=== PATIENT | female | born 2000 | race Caucasian/White ===

== ENCOUNTER 2020-01-03 22:59 | Emergency (ER) | payer OTHER, SELFPAY ==
--- NOTE | ~2020-01-03 | XR_ITS ---
EXAMINATION: XR wrist LT min 3V EXAM DATE: 01/03/2020 23:38 INDICATION: No known recent injury provided at this time. Pain of the left wrist. TECHNIQUE: Left wrist frontal, frontal with ulnar deviation, oblique and lateral projections obtained and reviewed. There is no prior study for comparison. FINDINGS: Left wrist scapholunate joint space is maintained. There are no bony erosions identified. There are no acute fractures or dislocations identified. There is no subcutaneous gas. The soft tissue is unremarkable. There are no radiopaque foreign bodies. IMPRESSION: Unremarkable left wrist exam. Reviewed, dictated and finalized at location .
[2020-01-03 23:05] VITALS: BP 130/83; PULSE 83; RESP 20; TEMP 37.2; O2SAT 99
--- NOTE | 2020-01-03 23:30 | ED.UPPEXIN ---
HPI - Extremity Injury (Upper) General Chief Complaint: Extremity Injury, Upper Stated Complaint: pain in wrist Source: patient Mode of arrival: ambulatory Limitations: no limitations History of Present Illness HPI narrative: 19-year-old woman comes in today complaining of pain in her right wrist that started today. 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 She denies numbness or tingling and denies falls. She denies prior similar symptoms. complaint: injury to: left and wrist Onset (ago): hour(s) (6) Other Extremity Injury: Left: wrist Other injuries: none Handedness: right Place: work Severity: moderate Relieving factors: none Exacerbating factors: movement of extremity Context: other ( pulled on by dog leash) Associated symptoms: denies other symptoms Related Data Home Medications Medication Instructions Recorded Confirmed No Home Medications 01/03/20 01/03/20 etonogestrel-ethinyl estradiol 1 vag ring VAGINAL DIRECTED 01/03/20 01/03/20 [NuvaRing] Allergies Allergy/AdvReac Type Severity Reaction Status Date / Time No Known Allergies Allergy Verified 01/03/20 23:34 Review of Systems Constitutional: Constitutional: Denies fever(s) and Denies weakness ENT: Denies dysphagia, Denies nasal congestion and Denies sore throat Cardiovascular: Cardiovascular: Denies chest pain and Denies radiating jaw, neck or arm pain Respiratory: Respiratory: Denies cough, Denies dyspnea and Denies wheezing Gastrointestinal: Gastrointestinal: Denies abdominal pain, Denies nausea and Denies vomiting Genitourinary: Genitourinary: Denies nocturia and Denies dysuria Musculoskeletal: Musculoskeletal: Reports as per HPI, Denies back pain, Reports arthralgias and Denies joint swelling Integumentary/Breasts: Skin/Breast: Denies pruritus, Denies erythema and Denies rash Neurologic: Denies vertigo and Denies dizziness Hematologic/Lymphatic: Hematologic/Lymphatic: Denies easy bleeding and Denies easy bruising Allergic/Immunologic: Allergic/Immunologic: Denies lip swelling and Denies wheezing PMFSH Family History Family History (Updated 09/30/15 @ 10:11 by DOCTOR UNKNOWN) Other Diabetes mellitus Family history of arthritis Family history of gout Family history of malignant neoplasm Social History Social History (Updated 01/03/20 @ 23:35 by Bharath Pearson MD) Smoking status: Current every day smoker Alcohol intake: current Alcohol use details: occasional Substance use: current Substance use type: marijuana Living arrangements: with family 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 Exam Const: General: healthy appearing and alert Orientation/consciousness: patient oriented x3 Limitations: no limitations Other: moderate acute distress Eyes: Conjunctivae: conjunctivae normal Pupils: Equal, round and reactive pupils present EOM: EOMs intact bilaterally Resp: Effort & Inspection: normal respiratory effort and not labored Auscultation: clear to auscultation bilaterally, no rales, no rhonchi and no wheezes Cardio: Rate: regular rate Rhythm: regular rhythm Heart sounds: no murmurs Skin: General skin exam: normal color, no jaundice and no pallor Rashes: no rashes Neuro: General: patient oriented x3, moves all extremities, no focal motor deficits and CN's II-XI intact bilaterally Speech: normal speech Extrem: General: normal to inspection and no clubbing, cyanosis or edema Other: patient has tenderness over the adductor pollicis longus and extensor pollicis brevis at the tip of the radius. Positive Christopher's sign. Psych: Appearance: grossly normal and well kempt Mental Status: mental status grossly normal Affect: normal affect Attitude: cooperative Thought content: Yes Normal thought content present Discharge Plan Discharge Clinical Impression: De Quervain's tenosynovitis Patient D
--- NOTE | 2020-01-03 23:40 | PC.NURSE ---
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
--- NOTE | 2020-01-03 23:55 | PC.NURSE ---
discharge packet reviewed with patient. no questions or concerns at this time. splint applied as order. cap refill WNL. explained if swelling occurs to reapply and loosen straps. pt voiced understanding.
== END 2020-01-03 23:54 | disposition home or self-care (01) ==
PROVIDERS: Emergency Provider Emergency Medicine; PCP Internal Medicine
DX: M65.4 Radial styloid tenosynovitis [de Quervain] (principal)
CPT/HCPCS: 29125; 73110; 99282; 99283; L3908

== ENCOUNTER 2020-05-18 20:49 | Emergency (ER) | payer OTHER, SELFPAY ==
--- NOTE | ~2020-05-18 | XR_ITS ---
XR soft tissue neck DATE: 05/18/2020 22:09 INDICATION: Foreign body sensation in right throat and neck TECHNIQUE: AP and lateral soft tissue views of the neck COMPARISON: None FINDINGS: There is mild reversal cervical curvature. No fracture or dislocation or prevertebral soft tissue swelling of the cervical spine. Normal size of the epiglottis. No prevertebral soft tissue swelling or emphysema. The tracheal air co lumn appears normal. No radiopaque foreign body is evident. IMPRESSION: Normal soft tissues of the neck; no radiopaque foreign body. Reviewed, dictated and finalized at [facility]. Reviewed, dictated and finalized at location A.
[2020-05-18 21:30] VITALS: BP 182/92; PULSE 98; RESP 20; TEMP 36.7; O2SAT 100
--- NOTE | 2020-05-18 21:57 | ED.URI ---
HPI - URI/Sore Throat General Chief Complaint: Neck Pain/Injury Stated Complaint: swollen throat Time Seen by Provider: 05/18/20 21:45 Source: patient Mode of arrival: ambulatory Limitations: no limitations History of Present Illness HPI Narrative: 19-year-old woman comes in today complaining of swelling of the right side of her throat and very mild pain in the right side of her neck and her throat. She states that pain is worse with swallowing. She denies foreign bodies, eating grilled food, cough, cold symptoms, fever, neck stiffness, sick exposures, or rash. MD elicited complaint: sore throat Onset (ago): hour(s) (12) Consistency: constant Severity: moderate Exacerbating factors: swallowing and other ( Palpation of neck) Relieving factors: nothing Associated symptoms: sore throat Related Data Home Medications Medication Instructions Recorded Confirmed No Home Medications 01/03/20 01/03/20 Allergies Allergy/AdvReac Type Severity Reaction Status Date / Time No Known Allergies Allergy Verified 01/03/20 23:34 Review of Systems Constitutional: Constitutional: Denies chills and Denies fever(s) Eyes: Eyes: Denies change in vision and Denies photophobia ENT: Denies dysphagia, Denies nasal congestion and Reports sore throat Cardiovascular: Cardiovascular: Denies chest pain and Denies radiating jaw, neck or arm pain Respiratory: Respiratory: Denies cough and Denies dyspnea Gastrointestinal: Gastrointestinal: Denies nausea and Denies vomiting Integumentary/Breasts: Skin/Breast: Denies pruritus, Denies erythema and Denies rash Neurologic: Denies vertigo, Denies dizziness and Denies syncope Hematologic/Lymphatic: Hematologic/Lymphatic: Denies easy bleeding and Denies easy bruising Allergic/Immunologic: Allergic/Immunologic: Reports as per HPI, Denies lip swelling and Denies tongue swelling PMFSH Family History Family History (Updated 09/30/15 @ 10:11 by DOCTOR UNKNOWN) Other Diabetes mellitus Family history of arthritis Family history of gout Family history of malignant neoplasm Social History Social History Smoking status: Current every day smoker Alcohol intake: current Substance use: current Substance use type: marijuana 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 There is no swelling, masses and the neck is supple. No lymphadenopathy. Eyes: Conjunctivae: conjunctivae normal Pupils: Equal, round and reactive pupils present EOM: EOMs intact bilaterally Resp: Effort & Inspection: normal respiratory effort and not labored Auscultation: clear to auscultation bilaterally, no rales, no rhonchi and no wheezes Cardio: Rate: regular rate Rhythm: regular rhythm Heart sounds: no murmurs Skin: General skin exam: normal color, no jaundice and no pallor Rashes: no rashes Neuro: General: patient oriented x3, moves all extremities, no focal motor deficits and CN's II-XI intact bilaterally Speech: normal speech Gait exam (Neuro): Normal gait present Extrem: General: normal to inspection and no clubbing, cyanosis or edema Psych: Appearance: grossly normal and well kempt Mental Status: mental status grossly normal Affect: normal affect Attitude: cooperative Thought content: Yes Normal thought content present MDM - URI/Sore Throat Differential Diagnosis Differential diagno
[2020-05-18 22:02] LABS: Pregnancy On Board Control Positive; Urine Pregnancy Test Negative
[2020-05-18 22:35] VITALS: BP 138/87; PULSE 87; RESP 20; TEMP 37.1; O2SAT 100
== END 2020-05-18 22:36 | disposition home or self-care (01) ==
PROVIDERS: Emergency Provider Emergency Medicine; PCP Internal Medicine
DX: R60.0 Localized edema (principal)
CPT/HCPCS: 70360; 81025; 87081; 87880; 99282; 99283

== ENCOUNTER → 2020-09-09 11:58 | Outpatient (CLI) | payer OTHER, SELFPAY ==
--- NOTE | ~2020-09-09 | US_ITS ---
EXAMINATION: US OB <= 14 weeks fetus DATE: 09/09/2020 14:09 INDICATION: Establish dating of during first trimester TECHNIQUE: Real-time pelvic ultrasound utilizing transabdominal probe was performed. The concetta alejandre radiologist was not present for the study. COMPARISON: None. FINDINGS: The uterus measures 11.5 x 6.0 x 6.7 cm. There is an intrauterine gestational sac. A yolk sac and fe tarik pole are identified. The crown rump length measures 3.4 cm, which correlates with an estimated ge stational age of 10 weeks and 2 days. heart motion is identified measuring 172 beats per minute (bpm) by M-mode Doppler. There is a separate 1.5 x 1.1 x 1.0 cm anechoic region along the left side of the gestational sac by a single thin intervening membrane. No evident second yolk sac or pole within the anechoic region. The right ovary measures 2.1 x 1.3 x 2.1 cm. The left ovary measures 2.4 x 1.9 x 2.5 cm. There is no free fluid in the pelvis. IMPRESSION: 1. Single living fetus with heart of 172 bpm. 2. Gestational age by ultrasound of 10 weeks 2 day(s) +/- 6 day(s) with ultrasound estimated date of delivery (MARITA) of 04/05/2021. 3. Separate 15 x 11 x 10 mm anechoic region at the periphery of the gestational sac. Differential wou ld include either small subchorionic hematoma or a monochorionic diamniotic with remnant em pty empty amniotic sac with failure of the second . Reviewed, dictated and finalized at location A. OGEN PLANT OPERATIONS MANAGER IMPRESSION: 1. Single living fetus with heart of 172 bpm. 2. Gestational age by ultrasound of 10 weeks 2 day(s) +/- 6 day(s) with ultras ound estimated date of delivery (MARITA) of 04/05/2021. 3. Separate 15 x 11 x 10 mm anechoic region at the periphery of the gestational sac. Differential would include either small subchorionic hematoma or a monoch orionic diamniotic with remnant empty empty amniotic sac with failure of the second .
== END ==
PROVIDERS: Visit Provider Obstetrics & Gynecology
DX: Z36.9 Encounter for antenatal screening, unspecified (principal); Z3A.10 10 weeks gestation of pregnancy
CPT/HCPCS: 76801

== ENCOUNTER → 2020-10-07 12:58 | Outpatient (CLI) | payer OTHER, SELFPAY ==
--- NOTE | ~2020-10-07 | US_ITS ---
EXAMINATION: US OB follow up DATE: 10/07/2020 13:15 INDICATION: Subchorionic hematoma TECHNIQUE: Real-time ultrasound of the pelvis was performed. The interpreting radiologist was not pre sent for the study. COMPARISON: None. FINDINGS: There is a single living fetus in variable presentation. The placenta is left anterior and low-lying with caudal margin approximately 8 mm from the internal cervical os. heart rate is 154 beats p er minute (bpm). The amniotic fluid volume is subjectively normal. No evident subchorionic hematoma. IMPRESSION: 1. Single living fetus in variable presentation with heart rate of 154 bpm. 2. Low-lying placenta with caudal margin 8 mm from the internal cervical os without evident subchorio floresita hematoma. Reviewed, dictated and finalized at location A. D BOOKER IMPRESSION: 1. Single living fetus in variable presentation with heart rate of 154 bp m. 2. Low-lying placenta with caudal margin 8 mm from the internal cervical os wit hout evident subchorionic hematoma.
== END ==
PROVIDERS: Visit Provider Obstetrics & Gynecology
DX: O44.40 Low lying placenta NOS or without hemorrhage, unspecified trimester (principal); O36.8910 Maternal care for other specified fetal problems, first trimester, not applicable or unspecified; Z3A.00 Weeks of gestation of pregnancy not specified
CPT/HCPCS: 76816

== ENCOUNTER → 2020-11-06 11:19 | Outpatient (CLI) | payer OTHER, SELFPAY ==
--- NOTE | ~2020-11-06 | US_ITS ---
EXAMINATION: US OB >= 14 weeks Fetus DATE: 11/06/2020 12:03 INDICATION: Second trimester anatomic survey, low lying placenta TECHNIQUE: Real-time ultrasound of the pelvis was performed. COMPARISON: 10/07/2020 FINDINGS: There is a single living fetus in vertex presentation. The placenta is anterior and 4.6 cm from the i nternal cervical os. heart rate is 164 beats per minute (bpm). cardiac activity and feta l movement are noted. The amniotic fluid index is subjectively normal. There is a 3 mm echogenic focu s of unclear location in the pelvis. The following anatomy was identified as normal: 4 chamber heart 3 vessel cord cord insertion kidneys urinary bladder stomach spine diaphragm ventricles cisterna magna cerebellum The following biometric data were obtained: Biparietal diameter (BPD): 4.4 cm; head circumference (HC): 16.8 cm; abdominal circumference (AC): 13 .3 cm; femur length (FL): 2.8 cm. These measurements are concordant. Estimated weight is 262 g +/- 39 g, which correlates with the 4th percentile when 03/25/2021 is used as estimated date of delivery. As single measurements, these parameters are each equal to the following estimated gestational ages w ith ranges of +/- 2 standard deviations: BPD: 19 weeks 2 days ( 17 weeks 4 days - 21 weeks 0 days). HC: 19 weeks 3 days ( 18 weeks 0 days - 21 weeks 0 days). AC: 18 weeks 6 days ( 16 weeks 5 days - 20 weeks 6 days). FL: 18 weeks 5 days ( 17 weeks 0 days - 20 weeks 4 days). estimated gestational age based solely on measurements from this exam is 19 weeks 1 days +/- 1 weeks 2 days. IMPRESSION: 1. Single living fetus in vertex presentation. 2. Estimated weight is 262 g +/- 39 g, which correlates with the 4th percentile when 03/25/2021 is used as estimated date of delivery. 3. Echogenic focus of unclear location and the pelvis. Sonographic follow-up is recommended. 4. Normal placenta position. Reviewed, dictated and finalized at location A. RVISOR METALIZING IMPRESSION: 1. Single living fetus in vertex presentation. 2. Estimated weight is 262 g +/- 39 g, which correlates with the 4th perc entile when 03/25/2021 is used as estimated date of delivery. 3. Echogenic focus of unclear location and the pelvis. Sonographic follow -up is recommended. 4. Normal placenta position.
== END ==
PROVIDERS: Visit Provider Obstetrics & Gynecology
DX: O44.11 Complete placenta previa with hemorrhage, first trimester (principal); Z3A.19 19 weeks gestation of pregnancy
CPT/HCPCS: 76805

== ENCOUNTER 2020-12-03 12:07 | Outpatient (CLI) | payer OTHER, MEDICAID, SELFPAY ==
[2020-12-03 12:35] LABS: Basophils Absolute Auto 0.03 K/mm3 (0.00-0.10); Basophils Percent Auto 0.3 % (0.0-1.0); Eosinophils Absolute Auto 0.09 K/mm3 (0.02-0.50); Hematocrit 37.1 % (35.0-49.0); Immature Granulocyte Absolute 0.07 K/mm3 (0.00-0.00); Immature Granulocyte Percent A 0.8 % (0.0-0.0); Lymphocytes Absolute Auto 1.88 K/mm3 (1.10-4.50); Lymphocytes Percent Auto 21.1 % (18.0-42.0); Mean Corpuscular HGB Conc 32.3 g/dL (32.0-36.0); Mean Corpuscular Hemoglobin 27.4 pg (27.0-31.0); Mean Corpuscular Volume 84.7 fL (78.0-102.0); Mean Platelet Volume 11.4 fl (9.2-11.8); Monocytes Percent Auto 3.4 % (2.0-11.0); Neutrophils Absolute Auto 6.5 K/mm3 (1.7-7.2); Neutrophils Percent Auto 73.4 % (50.0-70.0); Platelet Count Result 208 K/mm3 (150-420); Red Blood Count 4.38 M/mm3 (4.20-5.40); Red Cell Distribution Width 12.4 % (11.6-14.4); White Blood Count 8.9 K/mm3 (4.8-10.8)
[2020-12-03 12:45] LABS: Hemoglobin A1C < 4.7 % (<5.7)
[2020-12-03 13:16] LABS: HIV 1 P24 AG Negative (Negative); HIV 1/2 AB Negative (Negative)
[2020-12-06 05:13] LABS: Hepatitis B Surface Antigen Nonreactive (Nonreactive)
[2020-12-06 11:59] LABS: Vitamin D 25 Hydroxy 30 ng/mL (30-100)
[2020-12-06 15:45] LABS: RPR Screen Non-Reactive (Non-Reactive)
[2020-12-06 18:00] LABS: Rubella IgG Antibody <0.90 Index
== END 2020-12-03 12:08 | disposition home or self-care (01) ==
LOC: CHSLAB 12:11
PROVIDERS: PCP Internal Medicine; Visit Provider Obstetrics & Gynecology
DX: Z36.9 Encounter for antenatal screening, unspecified (principal)
CPT/HCPCS: 36415; 82306; 83036; 85025; 86592; 86703; 86762; 86850; 86900; 86901

== ENCOUNTER 2021-01-14 11:34 | Outpatient (CLI) | payer MEDICAID, SELFPAY ==
[2021-01-14 12:55] LABS: Hematocrit 33.5 % (35.0-49.0); Hemoglobin 11.1 g/dL (12.0-15.0)
[2021-01-14 13:26] LABS: Glucose 1 Hour PP 50gm Dose 100 mg/dL (70-130)
[2021-01-14 13:50] LABS: HIV 1 P24 AG Negative (Negative); HIV 1/2 AB Negative (Negative)
[2021-01-16 21:01] LABS: Vitamin D 25 Hydroxy 44 ng/mL (30-100)
== END 2021-01-14 11:35 | disposition home or self-care (01) ==
LOC: CHSLAB 11:37
PROVIDERS: PCP Internal Medicine; Visit Provider Obstetrics & Gynecology
DX: Z34.82 Encounter for supervision of other normal pregnancy, second trimester (principal)
CPT/HCPCS: 36415; 82306; 82947; 85014; 85018; 86703

== ENCOUNTER 2021-03-13 15:00 | Outpatient (CLI) | payer OTHER, SELFPAY ==
--- NOTE | ~2021-03-13 | US_ITS ---
EXAMINATION: US OB limited w BPP DATE: 03/13/2021 16:24 INDICATION: Oligohydramnios TECHNIQUE: Real-time pelvic ultrasound was performed. The interpreting radiologist was not present fo r the study. COMPARISON: None. FINDINGS: There is a single living fetus in vertex presentation. The placenta is anterior. heart rate is 145 beats per minute (bpm). Normal amniotic fluid index of 9.9 cm (5th%-95%: 7.7-24.9 cm at 36 weeks estimated gestational age). Biophysical profile performed by the technologist: breathing (30 sec sustained breathing in 30 minutes): 2 out of 2 movement (3 gross body movements in 30 minutes): 2 out of 2 tone (one episode of hdmtayv-ounltfhzc-yavwpif limb movement): 2 out of 2 Amniotic fluid pocket (2 cm): 2 out of 2 Total score: 8 out of 8 IMPRESSION: 1. Single living fetus in vertex presentation with heart rate of 145 bpm. 2. Biophysical profile 8 out of 8. 3. Normal amniotic fluid index of 9.9 cm. Reviewed, dictated and finalized at location A.
[2021-03-13 15:24] VITALS: BP 134/88; PULSE 88
[2021-03-13 15:30] VITALS: BP 127/90; PULSE 76
[2021-03-13 15:45] VITALS: BP 123/79; PULSE 75
[2021-03-13 15:54] VITALS: BP 123/79; PULSE 70
== END 2021-03-13 16:36 | disposition home or self-care (01) ==
LOC: ANHOBOP 15:10 → ANHOBPP 15:12
PROVIDERS: PCP Internal Medicine; Visit Provider Obstetrics & Gynecology
DX: Z34.90 Encounter for supervision of normal pregnancy, unspecified, unspecified trimester (principal); Z3A.00 Weeks of gestation of pregnancy not specified
CPT/HCPCS: 59025; 76815; 76819; 84112; 99199

== ENCOUNTER 2021-03-22 11:20 | Outpatient (RCR) | payer OTHER, SELFPAY ==
--- NOTE | ~2021-03-22 | US_ITS ---
EXAMINATION: US OB limited EXAM DATE: 03/18/2021 17:05 INDICATION: Check amniotic fluid index. 3rd trimester. TECHNIQUE: Pelvic obstetrical transabdominal sonogram was performed by a technologist. There are mu ltiple grayscale and Doppler images available for interpretation. Comparison is made to prior examina tion from 03/13/2021. FINDINGS: There is a single fetus identified in vertex presentation with a heart rate of 139 beats pe r minute. The placenta is located in the left anterior position. There is no sonographic evidence of retroplacental hemorrhage identified. AMNIOTIC FLUID INDEX Quadrant 1: 2.4 cm Quadrant 2: 2.7 cm Quadrant 3: 3.4 cm Quadrant 4: 2.7 cm Amniotic fluid index: 11.1 cm. (The 5th -- 95th percentile range is 7.5-24.4). IMPRESSION: 1. Single fetus in vertex presentation with heart rate 139 beats per minute. 2. Normal SOLITARIO 11.1 cm. Reviewed, dictated and finalized at location A.
[2021-03-22 12:11] VITALS: BP 123/72; PULSE 88
== END 2021-06-02 07:36 | disposition home or self-care (01) ==
LOC: ANHOBOP 11:20
PROVIDERS: PCP Internal Medicine; Visit Provider Obstetrics & Gynecology
DX: O41.03X0 Oligohydramnios, third trimester, not applicable or unspecified (principal); Z3A.38 38 weeks gestation of pregnancy
CPT/HCPCS: 59025; 76815

== ENCOUNTER 2021-03-29 04:53 | Inpatient (IN) | payer OTHER, SELFPAY ==
[2021-03-29] VITALS (122 sets, daily range): BP systolic 91–191; BP diastolic 55–121; PULSE 57–154; TEMP 36.2–36.7; O2SAT 95–100; BMI 27.6
--- NOTE | 2021-03-29 05:51 | LDADM ---
This patient, Dai Riddle, was admitted to Labor/Delivery/Recovery 103 on 03/29/21 at 04:53. Plans for labor, pain management and were discussed with patient. Patient/family oriented to hospital policies and general routines including ID bracelet, bed and alarms, visiting hours, pain management, procedures, bathroom and other care routines, personal items, smoking policy, room service/diet and guest tray routines, security routines, and visiting hours. Patient/Family are encouraged to report perceived risks to care and to ask questions if they do not understand what they are told or what they should do. See OBIX for further documentation.
[2021-03-29 06:08] LABS: Basophils Absolute Auto 0.1 K/mm3 (0.0-0.1); Basophils Percent Auto 0.5 % (0.2-1.2); Eosinophils Absolute Auto 0.2 K/mm3 (0-0.3); Eosinophils Percent Auto 1.7 % (0-4.4); Hematocrit 37.5 % (37.0-47.0); Hemoglobin 12.1 g/dL (12.0-15.0); Immature Granulocyte Absolute 0.11 K/mm3 (0.00-0.031); Lymphocytes Absolute Auto 2.13 K/mm3 (0.9-3.2); Lymphocytes Percent Auto 19.9 % (18.3-44.2); Mean Corpuscular HGB Conc 32.3 g/dl (32-36); Mean Corpuscular Hemoglobin 27.1 pg (26-34); Mean Corpuscular Volume 83.9 fl (80-100); Mean Platelet Volume 12.7 fl (7.4-10.4); Monocytes Absolute Auto 0.5 K/mm3 (0.1-0.6); Monocytes Percent Auto 4.7 % (2.6-8.5); Neutrophils Absolute Auto 7.7 K/mm3 (1.3-6.7); Neutrophils Percent Auto 72.2 % (45.5-73.1); Platelet Count Result 161 k/mm3 (150-375); Red Blood Count 4.47 M/mm3 (4.2-5.4); White Blood Count 10.7 K/mm3 (4.5-10.0)
[2021-03-29] MEDS: miSOPROStol 25 MCG TABLET VAGINAL ×2 (06:21→10:34)
--- NOTE | 2021-03-29 10:29 | WPDOBADMIT ---
Obstetrics - Admit Note Admission Note: record reviewed. No pertinent additions to the history and/or any subsequent changes in the physical findings that are not consistent with the expected course of the were found. fingertip/ 50/-2 continue with cytotec. Additions to the history and/or subsequent changes in the physical findings follow. None.
--- NOTE | 2021-03-29 10:35 | WPDANESEPP ---
Anes - Eval Pre Procedure Procedure: labor epidural Date/Time: 03/29/21 10:35 Surgeon: tal Pre Op Diagnosis: Induction of Labor Patient Data Age: 20 Gender: F Height: 1.68 m Weight: 77.5 kg Last Vital Signs Temp 36.3 C L 03/29/21 06:21 Pulse 65 03/29/21 10:32 BP 137/82 03/29/21 10:32 Pulse Ox 100 03/29/21 06:23 Allergies Allergy/AdvReac Type Severity Reaction Status Date / Time No Known Allergies Allergy Verified 03/18/21 15:42 Home Medications Medication Instructions Recorded Confirmed Type ferrous sulfate 134 mg PO DAILY 03/18/21 03/18/21 History prenat.vits,ayana,hph-wiis-xuyah 1 tablet PO DAILY 03/18/21 03/18/21 History [ #2] Laboratory Tests 03/29/21 03/29/21 03/29/21 05:46 05:46 05:46 WBC 10.7 K/mm3 H K/mm3 (4.5-10.0) RBC 4.47 M/mm3 M/mm3 (4.2-5.4) Hgb 12.1 g/dL g/dL (12.0-15.0) Hct 37.5 % % (37.0-47.0) MCV 83.9 fl fl (80-100) MCH 27.1 pg pg (26-34) MCHC 32.3 g/dl g/dl (32-36) RDW 14.0 % % (11.5-14.5) Plt Count 161 k/mm3 k/mm3 (150-375) MPV 12.7 fl H fl (7.4-10.4) Immature Gran % (Auto) 1.0 % H % (0-0.5) Neut % (Auto) 72.2 % % (45.5-73.1) Lymph % (Auto) 19.9 % % (18.3-44.2) [place] % (Auto) 4.7 % % (2.6-8.5) Eos % (Auto) 1.7 % % (0-4.4) Baso % (Auto) 0.5 % % (0.2-1.2) Lymph # (Auto) 2.13 K/mm3 K/mm3 (0.9-3.2) [place] # (Auto) 0.5 K/mm3 K/mm3 (0.1-0.6) Eos # (Auto) 0.2 K/mm3 K/mm3 (0-0.3) Baso # (Auto) 0.1 K/mm3 K/mm3 (0.0-0.1) Abs Immat Gran (auto) 0.11 K/mm3 H K/mm3 (0.00-0.031) Absolute Neuts (auto) 7.7 K/mm3 H K/mm3 (1.3-6.7) Absolute Nucleated RBC 0.0 K/mm3 K/mm3 (0.0-0.012) Nucleated RBC % 0.0 % % (0.0-0.2) RPR Pending Blood Type O Positive Antibody Screen Negative Patient hx anesthesia problems: none Family hx anesthesia problems: none PMFSH Family History Family History Grandparent Family history of malignant neoplasm Family history of gout Family history of arthritis Father Hypertension Social History Social History Years smoked: 1 Smoking status: Current every day smoker Tobacco type: e-cigarettes/vaping Second hand tobacco smoke exposure: Yes Alcohol intake: current Alcohol use details: occasional Substance use: current Substance use type: marijuana Last use: 03/17/21 Additional occupation/education comments: [employer] Spiritual care concerns: No Exam Day of Procedure 03/29/21 10:35
--- NOTE | 2021-03-29 13:36 | PM.OBPNLAB ---
Pain Control Date/time seen: 03/29/21 13:36 /-2 arom clear fluid .
[2021-03-29] MEDS: fentaNYL CITRATE INJ (*CRX) 100 MCG/2 ML VIAL 50 MCG IV PUSH ×2 (13:41→15:35)
[2021-03-29] MEDS: OXYTOCIN 30 UNITS/NS 500 ML 30 UNITS/500 ML BAG IV CONT (14:49)
[2021-03-29] MEDS: LACTATED RINGERS 1,000 ML 125 ML IV CONT (14:49)
[2021-03-29] MEDS: fentaNYL CITRATE INJ (*CRX) 100 MCG/2 ML VIAL IV PUSH ×3 (16:39→19:57)
[2021-03-29] MEDS: ONDANSETRON INJ 4 MG/2 ML VIAL IV PUSH (23:00)
[2021-03-30] VITALS (20 sets, daily range): BP systolic 100–143; BP diastolic 52–107; PULSE 54–162; RESP 16–20; TEMP 36.3–36.8; O2SAT 98
--- NOTE | 2021-03-30 01:15 | PM.OBPRVD ---
OB - Delivery Note Procedure Delivery date: 03/30/21 Procedure: events: Labor Induction Intrapartal events: None Induction method: AROM, per misoprostol protocol and per pitocin protocol Delivery monitor: external FHT and external uterine Route of delivery: Laceration Description: Labial Delivery repair: vicryl Specimen: No Quantitative Blood Loss (ml): 130 Anesthesia type: Epidural Disposition: floor [place] Baby Date of : 03/30/21 Time of : 00:57 Weeks of gestation at delivery: 39 Infant gender: Male Weight (pounds): 6 Weight (ounces): 12 presentation: vertex position: Left Occiput Anterior Placenta delivery description: Spontaneous cord vessel description: 3 Vessels, Clamped/Cut and Delayed Cord Clamping score one minute: 8 score five minutes: 9
[2021-03-30] MEDS: OXYTOCIN 30 UNITS/NS 500 ML 30 UNITS/500 ML BAG 125 UNITS IV CONT (01:30)
[2021-03-30] MEDS: BENZOCAINE 20% AER SPR (*SP) 56 GM CAN 1 SPRAY TOPICAL (03:47)
[2021-03-30] MEDS: WITCH HAZEL 40 PADS 1 PAD TOPICAL (03:47)
--- NOTE | 2021-03-30 05:08 | PC.NURSE ---
Patient transferred to post room #290 via wheelchair. Support person present. Oriented to unit, room, information board, rooming in, admission packet and security measures. Patient verbalizes understanding.
[2021-03-30] MEDS: IBUPROFEN 600 MG TABLET PO ×2 (07:05→23:05)
[2021-03-30] MEDS: DOCUSATE SODIUM 100 MG CAPSULE PO (07:05)
[2021-03-31] MEDS: IBUPROFEN 600 MG TABLET PO ×2 (05:05→13:40)
[2021-03-31 05:09] LABS: Hematocrit 34.8 % (37.0-47.0)
--- NOTE | 2021-03-31 07:35 | WPDANLDPN2 ---
Anes-Prog Note L&D Date/Time: 03/31/21 07:35 Comfortable throughout: labor and delivery Neuraxial method: epidural Epidural/Spinal procedure site: clean & non-tender Neuro status: Neuro function grossly intact. Cardiovascular status: normal Respiratory status: normal Airway patency: baseline Mental status: baseline Post-Op hydration status: normal Vital Signs: Last Vital Signs Temp 36.8 C 03/30/21 19:18 Pulse 79 03/30/21 19:18 Resp 16 03/30/21 19:18 BP 125/87 03/30/21 19:18 Pulse Ox 98 03/30/21 12:00 Pain score (VAS): 0 Post-procedural complaints: none Patient feedback: Patient satisfied with anesthetic care.
[2021-03-31 08:00] VITALS: BP 112/67; PULSE 64; RESP 18; TEMP 36.2
[2021-03-31 08:04] LABS: Rapid Plasma Reagin Non-Reactive (NonReactive)
[2021-03-31] MEDS: DOCUSATE SODIUM 100 MG CAPSULE PO (08:10)
[2021-03-31] MEDS: BENZOCAINE 20% AER SPR (*SP) 56 GM CAN 1 SPRAY TOPICAL (08:10)
[2021-03-31] MEDS: WITCH HAZEL 40 PADS 1 PAD TOPICAL (08:10)
--- NOTE | 2021-03-31 09:00 | PC.NURSE ---
Patient viewed the discharge video Mother & Baby Care, The First Two Weeks . Patient was given the opportunity and encouraged to ask questions. Patient verbalized understanding of information shared and has been given the mother/baby guide for home reference.
--- NOTE | 2021-03-31 09:05 | PM.OBPNVD ---
OB - PN: Subj Subjective Date/time seen: 03/31/21 09:05 Patient comments: no complaints and pain well controlled baby status: doing well Simpson feeding status: exclusively bottle feeding OB - PN: Obj Data Labs CBC & Chem 7: 03/31/21 05:00 Labs: Laboratory Results - last 24 hr 03/29/21 03/31/21 05:46 05:00 Hgb 11.0 L Hct 34.8 L RPR Non-reactive OB - PN A/P Plan day: 1 Plan: routine care, discharge home, follow up 6 weeks and other (plans nuvaring) Time Spent With Patient Time: Total time spent is greater than 50% in coordination of care (as documented) at patient's floor/unit and/or counseling patient: Exam : Bimanual exam- vagina & uterus: other (Uterus firm, nt @U)
--- NOTE | 2021-03-31 11:59 | PC.NURSE ---
Self care and infant care discharge instructions given including follow up visit date and time. Mother verbalized understanding. No questions or concerns voiced. FOB at side.
[2021-03-31] MEDS: MEASLES,MUMPS,RUBELLA VACCINE 0.5 ML VIAL SUB-Q (13:00)
[2021-04-02 11:08] VITALS: BP 128/89; PULSE 73; RESP 16; TEMP 37.1; O2SAT 100
--- NOTE | 2021-06-09 11:59 | P.DS_ITS ---
DS: Admitting Diagnosis Discharge Date 03/31/21 Admitting Diagnosis labor OB - DS: Summary OB Procedures : Ultrasound OB Procedures Intrapartum: Spontaneous Vag Delivery OB Procedures: : None Time Spent with Patient Time attestation: Total time spent providing and/or coordinating discharge services: Discharge Plan Discharge Attending physician on discharge: Erik Inman Discharging Clinician: Erik Inman Patient Disposition: Home, Self-Care Activity: may shower and pelvic rest Diet: regular Discharge Instructions: Education: Mom and Baby Guide Given to: Mother Follow-Up: Call your delivering provider's office for an appointment to be seen in: 4 Weeks Mom and baby should come to the [facility] for the follow-up appointment. Appointment Date/Time: Friday, April 02, 2021 at 11:00 am What to expect at your follow-up visit: Blood Pressure Check Physical Assessment Call [phone] if you are unable to keep your appointment time. BREAST CARE: * Wear a snug supportive bra. Bottle Feeding: * May apply ice packs EPISIOTOMY/PERINEAL CARE: * Until bleeding stops, use your filippo bottle after urinating * Change your pad frequently throughout the day * You may take sitz baths several times a day (fill your bathtub with warm water and soak for 20 minutes.) Do NOT bathe in the water * No tub baths until seen by your physician - You may shower ACTIVITY: * Rest as much as possible. * Do not exercise or lift anything heavier than your baby (such as laundry or other children.) * Avoid stairs or driving as much as possible. * Do not put anything into the vagina. No douching, tampons, or sexual activity until seen by physician. NOTIFY PHYSICIAN IF YOU HAVE ANY QUESTIONS OR IF ANY OF THE FOLLOWING SYMPTOMS OCCUR: * If your episiotomy becomes red, swollen, or more painful than what you have experienced in the hospital. * If your vaginal bleeding becomes foul smelling. * If your vaginal bleeding becomes more heavy than a period or if your bleeding changes from pink to bright red. However, you may pass an occasional walnut- sized clot once or twice for the first week . * If you experience a sharp, shooting pain in you calves. * If you discover a hard, reddened area on your breast or if you experience flu- like symptoms. DIET: * Eat regular, well-balanced meals. * Drink plenty of fluids daily. If , drink to thirst. Patient Instructions: Antibiotic Form, How to Stop Smoking (GEN), Electronic Cigarettes and Your Health (GEN) Stand Alone Forms: General Discharge Information Follow-up/Referrals: Erik Inman MD [Physician] - Discharge Medications: Discontinued ferrous sulfate 134 mg (27 mg iron) Tablet 134 mg PO DAILY RF: 0 #2 Tablet 1 tablet PO DAILY RF: 0 No Action Ortho-Novum (28) 0.5/0.75/1 mg- 35 mcg tablet 1 tablet PO DAILY Qty: 28 RF: 0 Date of admission: 03/29/21 04:53 Primary Care Provider: Michael Turk Admitting Provider: Erik Inman Attending physician on admission: Tala Oates Condition: Stable
== END 2021-03-31 13:44 | disposition home or self-care (01) | DRG 560 ==
LOC: ANHLDR 03-30 01:15 → ANHOB2 03-30 11:15 → ANHLDR 04-01 14:02 → ANHOB2 04-01 14:02
PROVIDERS: Admitting Provider Obstetrics & Gynecology; PCP Internal Medicine; Visit Provider Obstetrics & Gynecology Gynecology
DX: O99.334 Smoking (tobacco) complicating childbirth (principal); F17.210 Nicotine dependence, cigarettes, uncomplicated; O70.0 First degree perineal laceration during delivery; Z3A.39 39 weeks gestation of pregnancy; Z37.0 Single live birth
CPT/HCPCS: 36415; 85014; 85018; 85025; 86592; 86850; 86900; 86901; 90710; A9270; J2405; J2590; J2795; J3010; J7120

== ENCOUNTER 2021-05-07 19:00 | Emergency (ER) | payer OTHER, SELFPAY ==
[2021-05-07 19:52] VITALS: BP 127/89; PULSE 74; RESP 18; TEMP 36.5; O2SAT 100
[2021-05-07 20:13] LABS: Basophils Percent Auto 0.6 % (0.2-1.2); Eosinophils Absolute Auto 0.3 K/mm3 (0-0.3); Eosinophils Percent Auto 4.4 % (0-4.4); Hematocrit 39.4 % (37.0-47.0); Hemoglobin 12.8 g/dL (12.0-15.0); Immature Granulocyte Absolute 0.03 K/mm3 (0.00-0.031); Immature Granulocyte Percent A 0.4 % (0-0.5); Lymphocytes Absolute Auto 2.49 K/mm3 (0.9-3.2); Lymphocytes Percent Auto 35.3 % (18.3-44.2); Mean Corpuscular HGB Conc 32.5 g/dl (32-36); Mean Corpuscular Hemoglobin 27.5 pg (26-34); Mean Corpuscular Volume 84.5 fl (80-100); Mean Platelet Volume 11.3 fl (7.4-10.4); Monocytes Absolute Auto 0.3 K/mm3 (0.1-0.6); Monocytes Percent Auto 4.7 % (2.6-8.5); Neutrophils Absolute Auto 3.9 K/mm3 (1.3-6.7); Neutrophils Percent Auto 54.6 % (45.5-73.1); Platelet Count Result 202 k/mm3 (150-375); Red Blood Count 4.66 M/mm3 (4.2-5.4); Red Cell Distribution Width 12.4 % (11.5-14.5); White Blood Count 7.1 K/mm3 (4.5-10.0)
[2021-05-07 20:40] LABS: Beta HCG Quantitative < 2.39 mIU/ML
[2021-05-07 23:25] VITALS: BP 136/89; PULSE 85; RESP 14; O2SAT 100
--- NOTE | 2021-05-07 23:50 | ED.FEMALEGU ---
HPI - Female Genitourinary General Chief complaint: Vaginal Bleeding Stated complaint: Vaginal Bleeding Time Seen by Provider: 05/07/21 22:50 Source: patient and family Mode of arrival: ambulatory Limitations: no limitations History of Present Illness HPI Narrative: 20-year-old 1 para 1 and a normal vaginal delivery on March 30 here with complaints of having heavy vaginal bleeding for last 8 days. She states that she has been soaking 1 pad every 1 hour. She states that she was dizzy earlier however not at this time. She states that she called her OB doctor recommended to come to the ER. She is presently bottlefeeding. She denies any fever or chills. MD elicited complaint: vaginal bleeding Onset (ago): day(s) (8) Severity: moderate Female Urogenital Radiation: LRQ Severity scale (1-10): 2 Quality of pain: cramping Consistency: constant Vaginal bleeding: moderate and # pads per hour (1) Exacerbating factors: none Relieving factors: none Associated symptoms: denies other symptoms Related Data Allergies Allergy/AdvReac Type Severity Reaction Status Date / Time No Known Allergies Allergy Verified 05/07/21 23:27 Review of Systems Review of Systems: All systems reviewed & are unremarkable except as noted in HPI and below Constitutional: Constitutional: Reports no additional constitutional complaints Eyes: Eyes: Reports no additional eye complaints ENT: Reports system reviewed and no additional complaints, except as documented Cardiovascular: Cardiovascular: Reports no additional cardiovascular complaints Respiratory: Respiratory: Reports no additional respiratory complaints Gastrointestinal: Gastrointestinal: Reports no additional gastrointestinal complaints Genitourinary: Genitourinary: Reports abnormal vaginal bleeding Musculoskeletal: Musculoskeletal: Reports no additional musculoskeletal complaints Integumentary/Breasts: Skin/Breast: Reports system reviewed and no additional complaints, except as docu [facility] Family History Family History Grandparent Family history of malignant neoplasm Family history of gout Family history of arthritis Father Hypertension Social History Social History Years smoked: 1 Smoking status: Current every day smoker Tobacco type: e-cigarettes/vaping Second hand tobacco smoke exposure: Yes Alcohol intake: current Alcohol use details: occasional Substance use: current Substance use type: marijuana Last use: 03/17/21 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 HEAD: Normocephalic, atraumatic. EYES: PERRLA and EOMI.. NECK: Supple. CHEST: Clear to auscultation. No respiratory distress. HEART: Regular rate and rhythm. No murmur heard. Normal peripheral pulses. ABDOMEN: Soft, nontender, nondistended, normal active bowel sounds. Mild suprapubic pain EXTREMITIES: Normal range of motion. No edema. SKIN: Warm, dry, no rash. NEURO: No focal deficits. Alert and oriented x3. PSYCH: Normal mood and affect. Course Course Emergency Course: Inform patient about her lab work, discussed with Dr. Vidales recommended to start on control pill. Advised patient about taking the medication as prescribed., Call Dr. Vidales's office in the morning for a follow-up. Vital Signs Vital signs: Vital Signs Temperature 36.5 C 05/07/21 19:52 Pulse Rate 74 05/07/21 19:52 Respiratory Rate 18 05/07/21 19:52 Blood Pressure 127/89 05/07/21 19:52 Pulse Oximetry 100 05/07/21 19:52 Temperature 36.5 C 05/07/21 19:52 Pulse Rate 85 05/07/21 23:25 Respiratory Rate 14 05/07/21 23:25 Blood Pressure 136/89 05/07/21 23:25 Pulse Oximetry 100 05/07/21 23:25 MDM - Female Genitourinary Lab Data Result diagram
[2021-05-08 00:20] VITALS: BP 122/78; PULSE 88; RESP 15; O2SAT 100
== END 2021-05-08 00:21 | disposition home or self-care (01) ==
PROVIDERS: Emergency Provider Family Medicine; PCP Internal Medicine
DX: N93.9 Abnormal uterine and vaginal bleeding, unspecified (principal); F17.290 Nicotine dependence, other tobacco product, uncomplicated
CPT/HCPCS: 36415; 84702; 85025; 85461; 99284

== ENCOUNTER 2021-05-16 11:10 | Outpatient (CLI) | payer OTHER, SELFPAY ==
--- NOTE | ~2021-05-16 | US_ITS ---
EXAMINATION: US pelvic complete DATE: 05/16/2021 11:44 INDICATION: bleeding with cramping TECHNIQUE: Multiple transabdominal and endovaginal sonographic images of the pelvis were obtained. COMPARISON: None. FINDINGS: The uterus measures 8.9 x 4.3 x 6.2 cm. The endometrial complex measures 4 mm in thickness with no f indings to suggest retained products of conception. The right ovary measures 2.7 x 1.0 x 1.5 cm. The left ovary measures 3.4 x 1.6 x 1.6 cm. There is normal vascular flow in the ovaries. There is a smal l amount of free fluid in the pelvis. IMPRESSION: 1. Small amount of free fluid in the cul-de-sac. Otherwise normal pelvic ultrasound with normal endom etrial complex and no findings to suggest retained products of conception. Reviewed, dictated and finalized at location A. IMPRESSION: 1. Small amount of free fluid in the cul-de-sac. Otherwise normal pelvic ultras ound with normal endometrial complex and no findings to suggest retained produc ts of conception.
== END 2021-05-16 11:11 | disposition home or self-care (01) ==
LOC: ANHIMG 11:12
PROVIDERS: PCP Internal Medicine; Visit Provider Obstetrics & Gynecology
DX: O72.1 Other immediate postpartum hemorrhage (principal); Z3A.00 Weeks of gestation of pregnancy not specified
CPT/HCPCS: 76856

== ENCOUNTER 2021-08-13 17:12 | Emergency (ER) | payer OTHER, SELFPAY ==
--- NOTE | ~2021-08-13 | XR_ITS ---
EXAMINATION: XR chest 1V portable 08/13/2021 17:58 INDICATION: Epigastric pain. Covid positive. PROCEDURE: AP portable chest COMPARISON: 05/24/2018 FINDINGS: Subtle right basilar airspace disease, suspicious for developing pneumonia. The cardiomedia stinal silhouette is within normal limits. There are no pleural effusions. There is no pneumothorax suspected. IMPRESSION: 1: NO ACUTE CARDIOPULMONARY DISEASE. Reviewed, dictated and finalized at location A. STICS ENGINEERING MANAGER
[2021-08-13 17:41] VITALS: BP 146/92; PULSE 68; RESP 20; TEMP 36.8; O2SAT 98
--- NOTE | 2021-08-13 18:27 | ED.SOB ---
HPI - SOB/Dyspnea General Chief Complaint: Shortness of Breath/Dyspnea Stated Complaint: COVID+, chest pain,SOB, Fever Source: patient Mode of arrival: ambulatory Limitations: no limitations History of Present Illness HPI Narrative: got covid sxs about a week ago. boyfriend and child both had covid, but they got better already. She still feels bad, and got worried. she felt some discomfort in her chest and feels a little winded when she gets up and just became worried. MD elicited complaint: shortness of breath Exacerbating factors: exertion Relieving factors: nothing Associated symptoms: denies other symptoms, chest pain, fever and cough Treatment prior to arrival: none (saw her pcp virtually and got zithro and prednisone RX) Related Data Home Medications Medication Instructions Recorded Confirmed No Home Medications 08/13/21 08/13/21 Allergies Allergy/AdvReac Type Severity Reaction Status Date / Time No Known Allergies Allergy Verified 08/13/21 17:46 Review of Systems Constitutional: Constitutional: Reports no additional constitutional complaints Eyes: Eyes: Reports no additional eye complaints ENT: Reports system reviewed and no additional complaints, except as documented Cardiovascular: Cardiovascular: Reports no additional cardiovascular complaints and Reports chest pain (chest hurt for a few minutes) Respiratory: Respiratory: Denies chest congestion, Reports cough, Reports dyspnea and Denies wheezing Gastrointestinal: Gastrointestinal: Reports no additional gastrointestinal complaints Musculoskeletal: Musculoskeletal: Reports no additional musculoskeletal complaints Neurologic: Reports system reviewed and no additional complaints, except as documented Psychiatric: Psychiatric: Reports no additional psychiatric complaints Endocrine: Endocrine: Reports no additional endocrine complaints Hematologic/Lymphatic: Hematologic/Lymphatic: Reports no additional hematologic/lymphatic complaints Allergic/Immunologic: Allergic/Immunologic: Reports no additional allergic/immunologic complaints [facility] Family History Family History Grandparent Family history of malignant neoplasm Family history of gout Family history of arthritis Father Hypertension Social History Social History Years smoked: 1 Smoking status: Current every day smoker Tobacco type: e-cigarettes/vaping Second hand tobacco smoke exposure: Yes Alcohol intake: current Alcohol use details: occasional Substance use: current Substance use type: marijuana Last use: 03/17/21 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 Spiritual care concerns: No Exam Const: General: no acute distress Nutritional Appearance: well nourished Orientation/consciousness: patient oriented x3 HENMT: Head: normal to inspection Eyes: Conjunctivae: conjunctivae normal Pupils: Equal, round and reactive pupils present Neck: Neck: normal visual inspection Chest: Chest palpation & inspection: normal inspection of the chest Resp: Effort & Inspection: normal respiratory effort Auscultation: clear to auscultation bilaterally Cardio: Rate: regular rate Rhythm: regular rhythm GI: GI Palp: Yes Soft to palpation and No Tenderness to palpation present (GI) : General: Yes no CVA tenderness Back/Spine/Pelvis: Back: no CVA tenderness Skin: General skin exam: normal color Rashes: no rashes Neuro: General: patient oriented x3 and moves all extremities Extrem: General: normal to inspection Psych: Mental Status: mental status grossly normal Thought content: Yes Normal thought content present Course Vital Signs Vital signs: Vital Signs Temperature 36.8 C 08/13/21 17:41 Pulse Rate 68 08/13/21 17:41 Respiratory Rate 20 08/13/21 17:41 Blood Pressure 146/92 H 08/13/21 17:41 Pulse Oximetry 9
[2021-08-13 18:45] VITALS: BP 146/92; PULSE 68; RESP 20; TEMP 36.7; O2SAT 99
== END 2021-08-13 18:49 | disposition home or self-care (01) ==
PROVIDERS: Emergency Provider Emergency Medicine
DX: U07.1 COVID-19 (principal)
CPT/HCPCS: 71045; 99282; 99283

== ENCOUNTER 2021-10-22 17:12 | Emergency (ER) | payer OTHER, SELFPAY ==
[2021-10-22 17:20] VITALS: BP 116/92; PULSE 90; RESP 14; TEMP 36.9; O2SAT 99
--- NOTE | 2021-10-22 17:36 | ED.URI ---
HPI - URI/Sore Throat General Chief Complaint: Upper Respiratory Infection Stated Complaint: sore throat Time Seen by Provider: 10/22/21 18:12 Source: patient, RN notes reviewed and old records reviewed Mode of arrival: ambulatory Limitations: no limitations History of Present Illness HPI Narrative: [facility] with sore throat x2 days. Reports left tonsil sore painful to touch. Left tonsil is more swollen than right tonsil. Reports temp of 100.9 yesterday. [place] nauseated. Feels better today. Denies sinus congestion. Mild runny nose. Denies earache. Denies headache. Reports occasional nonproductive cough. Appetite is the same. Denies muscle aches or chills. MD elicited complaint: cough, sore throat and rhinorrhea Related Data Allergies Allergy/AdvReac Type Severity Reaction Status Date / Time No Known Allergies Allergy Verified 10/22/21 17:44 Review of Systems Review of Systems: CONSTITUTIONAL: Denies malaise, chills, sweats. Fever 100.9 yesterday. ENT: Reports rhinorrhea. Reports sore throat. Hurts worse than right. Denies congestion, sinus pain, otalgia.. CARDIOVASCULAR: Denies chest pain, palpitations, or edema. RESPIRATORY: Denies cough. Denies dyspnea. GASTROINTESTINAL: Denies abdominal pain, nausea, vomiting, diarrhea SKIN: Denies rash or itching. MUSCULOSKELETAL: Denies myalgia. NEUROLOGIC: Denies headache. 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 There is no relevant family history pertinent to the presenting complaint Exam Narrative: GENERAL: Well-appearing, well-nourished, female and in no acute distress. Uncomfortable due to sore throat. HEAD: Normocephalic EYES: conjunctivae clear ENT: Nares clear, turbinates edematous and erythematous, clear discharge. Mucous membranes moist. TM pearly harrison with dull light reflex bilaterally; no tragal tenderness. Oropharynx erythematous without lesions. Tonsils enlarged and without exudate, no drooling, no hoarseness, no trismus, uvula midline. NECK: Supple. Left tonsillar lymphadenopathy and pain with tenderness CHEST: Clear to auscultation anterior and posterior., breath sounds equal. No wheezing, rhonchi, rales, or stridor. No respiratory distress, speaks in full sentences. HEART: Regular rate and rhythm. No murmur heard. SKIN: Warm, dry, no rash. NEURO: Alert and oriented x3. PSYCH: Normal mood and affect Course Course Emergency Course: Patient is aware of diagnosis, understands and agrees to treatment plan. Anticipatory guidance given. Patient agrees to follow-up as directed and is aware of reasons to seek care at the emergency department. Portions of this record may have been created with voice recognition software Level of Care: Express Care Visit Vital Signs Vital signs: Vital Signs Temperature 36.9 C 10/22/21 17:20 Pulse Rate 90 10/22/21 17:20 Respiratory Rate 14 10/22/21 17:20 Blood Pressure 116/92 H 10/22/21 17:20 Pulse Oximetry 99 10/22/21 17:20 Temperature 36.9 C 10/22/21 17:20 Pulse Rate 90 10/22/21 17:20 Respiratory Rate 14 10/22/21 17:20 Blood Pressure 116/92 H 10/22/21 17:20 Pulse Oxim
== END 2021-10-22 18:31 | disposition home or self-care (01) ==
PROVIDERS: Emergency Provider Nurse Practitioner Family
DX: J03.90 Acute tonsillitis, unspecified (principal); F17.290 Nicotine dependence, other tobacco product, uncomplicated
CPT/HCPCS: 87081; 87880; 99213; G0463

== ENCOUNTER 2022-07-26 11:13 | Emergency (ER) | payer OTHER, SELFPAY ==
[2022-07-26 11:22] VITALS: BP 92/62; PULSE 96; RESP 20; TEMP 36.8; O2SAT 100
--- NOTE | 2022-07-26 12:52 | ED.URI ---
HPI - URI/Sore Throat General Chief Complaint: Upper Respiratory Infection Stated Complaint: sore throat cough fever Source: patient Mode of arrival: ambulatory Limitations: no limitations History of Present Illness HPI Narrative: 22-year-old female presents to [facility] with complaints of sore throat, cough, runny nose nasal congestion for the past 3 days. Patient reports that she took a negative home COVID test yesterday. Patient denies sick contacts. Patient denies recent travel. Patient does vape. Patient denies shortness of breath, wheezing, nausea vomiting or diarrhea. MD elicited complaint: cough, sore throat, rhinorrhea and nasal congestion Onset (ago): day(s) (3) Relieving factors: nothing Treatments prior to arrival: cold medicine Related Data Allergies Allergy/AdvReac Type Severity Reaction Status Date / Time No Known Allergies Allergy Verified 04/10/22 16:12 Review of Systems Constitutional: Constitutional: Denies chills, Denies fatigue, Denies fever(s) and Denies weakness ENT: Reports nasal congestion and Reports sore throat Comments: Runny nose Cardiovascular: Cardiovascular: Denies chest pain Respiratory: Respiratory: Reports cough, Denies dyspnea and Denies wheezing Gastrointestinal: Gastrointestinal: Denies diarrhea, Denies nausea and Denies vomiting Integumentary/Breasts: Skin/Breast: Denies rash Allergic/Immunologic: Allergic/Immunologic: Denies lip swelling, Denies throat swelling, Denies tongue swelling and Denies wheezing PMFSH Family History Family History Grandparent Family history of malignant neoplasm Family history of gout Family history of arthritis Father Hypertension Social History Social History Years smoked: 1 Smoking status: Current every day smoker Tobacco type: e-cigarettes/vaping Second hand tobacco smoke exposure: Yes Alcohol intake: current Alcohol use details: occasional Substance use: current Substance use type: marijuana Last use: 03/17/21 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 There is no relevant family history pertinent to the presenting complaint. Exam Const: General: healthy appearing, no acute distress and alert Nutritional Appearance: well nourished Orientation/consciousness: patient oriented x3 Limitations: no limitations HENMT: Head: normal to inspection Ears: external ears normal, TM's normal bilaterally and EAC's normal Face/Nose/Sinus: Normal external nose present and Normal nares present Mouth: Yes lip normal and Yes moist mucous membranes Teeth and gingiva: dentition normal Throat: uvula midline Other: Mild erythema noted to posterior pharynx Resp: Effort & Inspection: normal respiratory effort and not labored Auscultation: clear to auscultation bilaterally, no crackles, no rales, no rhonchi and no wheezes Cardio: Rate: regular rate Rhythm: regular rhythm Heart sounds: no murmurs Skin: General skin exam: normal color Rashes: no rashes Wounds: no wounds Neuro: General: patient oriented x3 Speech: normal speech Gait exam (Neuro): Normal gait present Psych: Affect: normal affect Attitude: cooperative Course Course Level of Care: Express Care Visit Vital Signs Vital signs: Vital Signs Temperature 36.8 C 07/26/22 11:22 Pulse Rate 96 07/26/22 11:22 Respiratory Rate 20 07/26/22 11:22 Blood Pressure 92/62 L 07/26/22 11:22 Pulse Oximetry 100 07/26/22 11:22 Oxygen Delivery Room Air 07/26/22 11:22 Temperature 36.8 C 07/26/22 11:22 Pulse Rate 96 07/26/22 11:22 Respiratory Rate 20 07/26/22 11:22 Blood Pressure 92/62 L 07/26/22 11:22 Pulse Oximetry 100 07/26/22 11:22 Oxygen Delivery Room Air 07/26/22 11:22
== END 2022-07-26 13:02 | disposition home or self-care (01) ==
PROVIDERS: Emergency Provider Nurse Practitioner Family
DX: B34.9 Viral infection, unspecified (principal); F17.290 Nicotine dependence, other tobacco product, uncomplicated
CPT/HCPCS: 87081; 87804; 87880; 99213; G0463

== ENCOUNTER 2022-12-22 15:24 | Outpatient (CLI) | payer OTHER, SELFPAY ==
[2022-12-22 15:42] LABS: Appearance Urine Clear (Clear); Basophils Absolute Auto 0.06 K/mm3 (0.00-0.10); Basophils Percent Auto 0.8 % (0.0-1.0); Bilirubin Urine Negative (Negative); Blood Urine 2+ (Negative); Color Urine Yellow (Yellow); Eosinophils Absolute Auto 0.41 K/mm3 (0.02-0.50); Eosinophils Percent Auto 5.3 % (1.0-6.0); Glucose Urine UA Negative (Negative); Hematocrit 39.9 % (35.0-49.0); Hemoglobin 12.8 g/dL (12.0-15.0); Immature Granulocyte Absolute 0.02 K/mm3 (0.00-0.00); Immature Granulocyte Percent A 0.3 % (0.0-0.0); Ketones Urine Trace (Negative); Leukocyte Esterase Ur Negative (Negative); Lymphocytes Absolute Auto 2.59 K/mm3 (1.10-4.50); Lymphocytes Percent Auto 33.3 % (18.0-42.0); Mean Corpuscular HGB Conc 32.1 g/dL (32.0-36.0); Mean Corpuscular Hemoglobin 27.3 pg (27.0-31.0); Mean Corpuscular Volume 85.1 fL (78.0-102.0); Mean Platelet Volume 11.6 fl (9.2-11.8); Monocytes Absolute Auto 0.33 K/mm3 (0.10-0.90); Monocytes Percent Auto 4.2 % (2.0-11.0); Neutrophils Absolute Auto 4.4 K/mm3 (1.7-7.2); Neutrophils Percent Auto 56.1 % (50.0-70.0); Nitrate Urine Negative (Negative); Platelet Count Result 274 K/mm3 (150-420); Protein Urine Negative (Negative); Red Blood Count 4.69 M/mm3 (4.20-5.40); Red Cell Distribution Width 12.3 % (11.6-14.4); Specific Grav Ur 1.025 (1.010-1.020); White Blood Count 7.8 K/mm3 (4.8-10.8)
[2022-12-22 15:54] LABS: Add Urine Microscopic? YES; WBC Urine None seen /hpf (0-3)
[2022-12-22 15:55] LABS: Bacteria Urine Trace /hpf; Squamous Epithelial Cell Urine Rare /hpf (Few)
[2022-12-22 16:19] LABS: Alanine Aminotransferase 52 U/L (14-59); Albumin Level 4.4 g/dL (3.4-5.0); Alkaline Phosphatase 49 U/L (46-116); Amylase 44 U/L (25-115); Anion Gap 9 mmol/L (8-16); Aspartate Amino Transferase 23 U/L (15-37); Beta HCG Quantitative < 1.00 mIU/mL (0-6); Bilirubin,Total 0.5 mg/dL (0.00-1.00); Blood Urea Nitrogen 11 mg/dL (7-18); Calcium 9.3 mg/dL (8.5-10.1); Carbon Dioxide 29 mmol/L (21-32); Chloride 104 mmol/L (98-108); Estimated Glomerular Filt Rate > 60; Glucose 79 mg/dL (70-99); Lipase 46 U/L (16-77); Osmolality Calculated 292 mOsm/kg (285-295); Potassium 3.8 mmol/L (3.5-5.1); Sodium 142 mmol/L (136-145); Total Protein 7.8 g/dL (6.4-8.2)
== END 2022-12-22 15:25 | disposition home or self-care (01) ==
LOC: CHSLAB 15:26
PROVIDERS: PCP Internal Medicine; Visit Provider Internal Medicine
DX: R10.9 Unspecified abdominal pain (principal)
CPT/HCPCS: 36415; 80053; 81001; 82150; 83690; 84702; 85025

== ENCOUNTER 2022-12-24 10:02 | Outpatient (CLI) | payer OTHER, SELFPAY ==
--- NOTE | ~2022-12-24 | US_ITS ---
Limited Abdominal Sonogram: Real-time sonographic imaging of the right upper quadrant was performed. Clinical History: Abdominal pain Findings: The liver appears normal with no evidence of mass lesion or bile duct dilatation. Main por tarik vein demonstrates normal direction of flow. The gallbladder is well distended, and appears normal with no evidence of gallstone or wall thickening. The common bile duct measures 2 mm. The visualize d pancreas, aorta, and IVC are unremarkable. Impression: No significant abnormality seen. Reviewed, dictated and finalized at location . Impression: No significant abnormality seen.
== END 2022-12-24 10:03 | disposition home or self-care (01) ==
LOC: CHSIMG 10:03
PROVIDERS: PCP Internal Medicine; Visit Provider Internal Medicine
DX: R10.9 Unspecified abdominal pain (principal)
CPT/HCPCS: 76705

== ENCOUNTER 2023-06-18 16:05 | Outpatient (CLI) | payer OTHER, SELFPAY ==
--- NOTE | ~2023-06-18 | XR_ITS ---
EXAMINATION:XR_[id number]_CR DATE: 06/18/2023 16:41 INDICATION: Neck pain TECHNIQUE: AP, lateral, and odontoid views of the cervical spine are provided. COMPARISON: None FINDINGS: There is reversal of normal cervical lordosis which can be due to muscular spasm. Alignment is normal. The odontoid process is intact. No fracture is identified. Vertebral body heights and dis k spaces are normal. Prevertebral soft tissues are normal. IMPRESSION: 1. No acute osseous abnormality. Reviewed, dictated and finalized at location F.
== END 2023-06-18 16:06 | disposition home or self-care (01) ==
LOC: CHSIMG 16:06
PROVIDERS: PCP Internal Medicine; Visit Provider Nurse Practitioner Family
DX: M54.2 Cervicalgia (principal)
CPT/HCPCS: 72040

== ENCOUNTER 2023-07-19 16:04 | Emergency (ER) | payer OTHER, SELFPAY ==
--- NOTE | ~2023-07-19 | CT_ITS ---
EXAMINATION: CT cervical spine wo con DATE: 07/19/2023 17:01 INDICATION: Right-sided posterior neck pain TECHNIQUE: Computed tomography (CT) of the cervical spine was performed without intravenous contrast. Automated exposure control and iterative reconstruction technique were employed. The dose-length pro duct was 159.72 mGy-cm. COMPARISON: None FINDINGS: Mild cervicothoracic dextrocurvature. Reversal of the normal cervical lordosis which could be positio nal or due to muscle spasm. No spondylolisthesis or facet subluxation. Vertebral body and disc height s are normal. There is mild bilateral facet osteoarthritis at C2-C3 and C7-T1 through T2-3, minimal a t the intervening cervical levels. Central canal and neural foramina are widely patent throughout. Ce rvical soft tissues are unremarkable. Visualized apices of lungs are clear. IMPRESSION: 1. 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 2. Reversal of the normal cervical lordosis which could be positional or due to muscle spasm. Reviewed, dictated and finalized at location A. TOLOGIST
[2023-07-19 16:06] VITALS: BP 130/75; PULSE 74; RESP 17; TEMP 37.1; O2SAT 100
--- NOTE | 2023-07-19 16:30 | ED.NECK ---
HPI - Neck Pain/Injury General Chief Complaint: Neck Pain/Injury Stated Complaint: neck pain Time Seen by Provider: 07/19/23 16:29 Source: patient Mode of arrival: ambulatory Limitations: no limitations History of Present Illness HPI Narrative: 22 years old white female presents with pain at the neck posteriorly mainly on the right side. started 6 months ago, Was seen by many physician in the past and was diagnosed of muscle spasm. History of depression, migraine headache. Patient was started on Flexeril which is contraindicated with her depression medication,. Patient denies any fever, chills, nausea, vomiting, headache, blurry vision, sore throat difficulty breathing or swallowing or ear aches Related Data Home Medications Medication Instructions Recorded Confirmed duloxetine 20 mg capsule,delayed mg PO 07/19/23 release Allergies Allergy/AdvReac Type Severity Reaction Status Date / Time No Known Allergies Allergy Verified 07/19/23 16:05 Review of Systems Review of Systems: All systems reviewed & are unremarkable except as noted in HPI and below PMFSH Family History Family History Grandparent Family history of malignant neoplasm Family history of gout Family history of arthritis Father Hypertension Social History Social History Years smoked: 1 Smoking status: Current every day smoker Tobacco type: e-cigarettes/vaping Second hand tobacco smoke exposure: Yes Alcohol intake: current Alcohol use details: occasional Substance use: current Substance use type: marijuana Last use: 03/17/21 Living arrangements: with family 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 Musculoskeletal: neck exam showed tenderness at the right side posteriorly, slightly swelling and tense compared to the left side. 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 as tested, no gross motor deficit Course Vital Signs Vital signs: Vital Signs Temperature 37.1 C 07/19/23 16:06 Pulse Rate 74 07/19/23 16:06 Respiratory Rate 17 07/19/23 16:06 Blood Pressure 130/75 07/19/23 16:06 Pulse Oximetry 100 07/19/23 16:06 Oxygen Delivery Room Air 07/19/23 16:06 Temperature 37.1 C 07/19/23 16:06 Pulse Rate 74 07/19/23 16:06 Respiratory Rate 17 07/19/23 16:06 Blood Pressure 130/75 07/19/23 16:06 Pulse Oximetry 100 07/19/23 16:06 Oxygen Delivery Room Air 07/19/23 16:06 MDM - Neck Pain/Injury MDM Narrative Medical decision making narrative: patient presents with a chronic neck pain Vital signs on arrival okay Physical examination as above Differential diagnosis included muscle spasm, arthritis, hematoma CT scan of the neck without contrast showed osteoarthritis, muscle spasm. Differential Diagnosis Differential diagnosis: Likely other ( Muscular strain/ sprain, osteoarthritis) Imaging Data Radiologist's impression: Impressions Cervical Spine CT 07/19/23 17:10 IMPRESSION: 1. 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 2. Reversal of the normal cervical lordosis whi
[2023-07-19 17:36] VITALS: BP 130/75; PULSE 74; RESP 17; TEMP 37.1; O2SAT 100
== END 2023-07-19 17:36 | disposition home or self-care (01) ==
PROVIDERS: Emergency Provider Emergency Medicine; PCP Internal Medicine
DX: M54.2 Cervicalgia (principal); F17.290 Nicotine dependence, other tobacco product, uncomplicated
CPT/HCPCS: 72125; 99284

== ENCOUNTER 2023-07-29 09:02 | Outpatient (CLI) | payer OTHER, SELFPAY ==
--- NOTE | ~2023-07-29 | MR_ITS ---
EXAMINATION: MR brain/brain stem wo con DATE: 07/29/2023 11:04 INDICATION: New onset migraine. TECHNIQUE: Magnetic resonance imaging (MRI) of the brain and brainstem was performed without intraven ous contrast. COMPARISON: None. FINDINGS: There is no intracranial hemorrhage, acute infarction, or abnormal intracranial mass lesion . The ventricles are normal in size. The paranasal sinuses are clear. The mastoid air cells are christina l. The orbits are normal. IMPRESSION: 1. Normal brain. Reviewed, dictated and finalized at location A. OGRAPHIC HAND DEVELOPER IMPRESSION: 1. Normal brain.
--- NOTE | ~2023-07-29 | MR_ITS ---
EXAMINATION: MR orbits face neck wo/w con DATE: 07/29/2023 11:10 INDICATION: New onset migraines. Optic nerve swelling. TECHNIQUE: Magnetic resonance imaging (MRI) of the orbits was performed without and with 13 mL MultiH ance intravenous contrast. COMPARISON: None. FINDINGS: The ocular globes, extraocular muscles, optic nerves, and optic chiasm are normal. There is no abnormal mass. IMPRESSION: 1. Normal orbits. Reviewed, dictated and finalized at location A. TRONICS ENGINEER IMPRESSION: 1. Normal orbits.
== END 2023-07-29 09:03 | disposition home or self-care (01) ==
LOC: CHSIMG 09:03
PROVIDERS: PCP Internal Medicine; Visit Provider Nurse Practitioner Family
DX: G43.911 Migraine, unspecified, intractable, with status migrainosus (principal); H47.10 Unspecified papilledema
CPT/HCPCS: 70543; 70551; A9577